=== PATIENT | female | born 1990 | race Caucasian/White ===

== ENCOUNTER 2017-12-06 18:35 | Outpatient (CLI) | payer OTHER, SELFPAY | END 2017-12-06 19:30 | disposition home or self-care (01) | LOC: M LDO 18:35 | DX: O47.03 False labor before 37 completed weeks of gestation, third trimester (principal); Z3A.36 36 weeks gestation of pregnancy | CPT/HCPCS: 59025 ==

== ENCOUNTER 2017-12-20 02:44 | Inpatient (IN) | payer OTHER ==
[2017-12-20] MEDS: LACTATED RINGER'S 1000 ML IV (03:16)
[2017-12-20 03:51] LABS: HEMATOCRIT 36.1 % (36.0-47.0); HEMOGLOBIN 12.5 g/dl (12.0-16.0); MEAN CORPUSCULAR HEMOGLOBIN 30.8 pg (27.0-33.0); MEAN CORPUSCULAR HGB CONC 34.6 g/dl (32.0-36.5); MEAN CORPUSCULAR VOLUME 88.9 fl (80.0-96.0); PLATELET COUNT, AUTOMATED 160 10^3/uL (150-450); RED BLOOD COUNT 4.06 10^6/uL (4.00-5.40); RED CELL DISTRIBUTION WIDTH 12.9 % (11.5-14.5); WHITE BLOOD COUNT 11.8 10^3/uL (4.0-10.0)
[2017-12-20] MEDS: PENICILLIN G POTASSIUM IV 5 MU in D5W MINI-BAG PLUS 100 ML IV (04:01)
[2017-12-20] MEDS: ACETAMINOPHEN TAB 650MG DOSE (2X325MG) PO (04:01)
[2017-12-20] MEDS: PENICILLIN G POTASSIUM IV 2.5 MU in APPROPRIATE DILUENT 1 EA IV ×3 (09:00→17:31)
[2017-12-20] MEDS: hydrALAZINE INJ 20 MG/ML VIAL IV (10:11)
[2017-12-20] MEDS: MAG Sulf (L&D) 4 GM/100 ML 4 GM in APPROPRIATE DILUENT 1 EA IV (11:30)
[2017-12-20] MEDS ORDERED: CALCIUM GLUCONATE 1,000 MG in D5W MINI-BAG PLUS 100 ML IV (11:30)
[2017-12-20] MEDS: MAG Sulf (OBGYN) 20GM/500ML 20,000 MG in APPROPRIATE DILUENT 1 EA IV ×3 (11:32→18:32)
[2017-12-20] MEDS: LR 1,000 ML IV ×3 (11:33→15:55)
[2017-12-20 11:40] LABS: HEMATOCRIT 36.3 % (36.0-47.0); HEMOGLOBIN 12.7 g/dl (12.0-16.0); MEAN CORPUSCULAR HEMOGLOBIN 30.2 pg (27.0-33.0); MEAN CORPUSCULAR VOLUME 86.2 fl (80.0-96.0); PLATELET COUNT, AUTOMATED 196 10^3/uL (150-450); RED BLOOD COUNT 4.21 10^6/uL (4.00-5.40); WHITE BLOOD COUNT 14.9 10^3/uL (4.0-10.0)
[2017-12-20] MEDS ORDERED: FENTANYL 2MCG/ML ROPIVACAINE 0.2% IN 0.9% NACL 200ML IVBAG As Ordered (11:46)
[2017-12-20 12:18] LABS: ALBUMIN/GLOBULIN RATIO 0.91 (1.00-1.93); ALKALINE PHOSPHATASE 75 U/L (45-117); ALT/SGPT 13 U/L (12-78); ANION GAP 11 MEQ/L (8-16); AST/SGOT 14 U/L (7-37); BILIRUBIN,TOTAL 0.3 MG/DL (0.2-1.0); BLOOD UREA NITROGEN 11 MG/DL (7-18); CALCIUM LEVEL 8.6 MG/DL (8.5-10.1); CARBON DIOXIDE LEVEL 22 MEQ/L (21-32); CHLORIDE LEVEL 105 MEQ/L (98-107); CREATININE FOR GFR 0.97 MG/DL (0.55-1.30); GLOMERULAR FILTRATION RATE > 60.0 (>60); GLUCOSE, FASTING 100 MG/DL (70-100); SODIUM LEVEL 138 MEQ/L (136-145); TOTAL PROTEIN 6.3 GM/DL (6.4-8.2)
[2017-12-20] MEDS ORDERED: ePHEDrine SULFATE 25 MG/5 ML(5MG/ML) SYRINGE IV (12:30)
[2017-12-20] MEDS ORDERED: NALOXONE INJ 0.4 MG/1 ML VIAL (J2310) IV (12:30)
[2017-12-20] MEDS ORDERED: diphenhydrAMINE INJ 50MG/ML VIAL (J1200) IV (12:30)
[2017-12-20] MEDS ORDERED: EPIDURAL COMMENT XX (12:30)
[2017-12-20] MEDS: FENTANYL/ROPIVACAINE/NACL BAG 200 ML EPIDURAL (12:30)
[2017-12-20 13:18] LABS: CREATININE,RANDOM URINE 56.3 MG/DL
[2017-12-20] MEDS: OXYTOCIN DRIP 30 UNITS in APPROPRIATE DILUENT 1 EA IV (16:10)
[2017-12-20] MEDS: ONDANSETRON 4MG/2ML VIAL (J2405) IV (16:59)
[2017-12-20] MEDS: ACETAMINOPHEN 500 MG TAB PO (17:00)
[2017-12-20 17:31] LABS: HEMATOCRIT 35.2 % (36.0-47.0); HEMOGLOBIN 12.2 g/dl (12.0-16.0); MEAN CORPUSCULAR HEMOGLOBIN 30.6 pg (27.0-33.0); MEAN CORPUSCULAR HGB CONC 34.7 g/dl (32.0-36.5); MEAN CORPUSCULAR VOLUME 88.2 fl (80.0-96.0); PLATELET COUNT, AUTOMATED 197 10^3/uL (150-450); RED BLOOD COUNT 3.99 10^6/uL (4.00-5.40); RED CELL DISTRIBUTION WIDTH 13.2 % (11.5-14.5); WHITE BLOOD COUNT 15.4 10^3/uL (4.0-10.0)
[2017-12-20 17:59] LABS: MAGNESIUM LEVEL 5.3 MG/DL (1.8-2.4)
[2017-12-20 23:44] LABS: MAGNESIUM LEVEL 7.3 MG/DL (1.8-2.4)
[2017-12-21] MEDS ORDERED: OXYTOCIN 30 UNITS IN 0.9% NaCl 500ML IV BAG (J2590) As Ordered (01:29)
[2017-12-21] MEDS ORDERED: OXYTOCIN INJ 10 UNITS/ML VIAL (J2590) As Ordered (01:39)
[2017-12-21] MEDS: miSOPROStol 200 MCG TAB (S0191) PR (01:41)
[2017-12-21] MEDS ORDERED: MOM 30ML SUSPENSION UDC PO (02:15)
[2017-12-21] MEDS ORDERED: ONDANSETRON 4MG/2ML VIAL (J2405) IV (02:15)
[2017-12-21] MEDS ORDERED: MEASLES,MUMPS,RUBELLA VACCINE INJ (MMR-II) (90707) SC (02:15)
[2017-12-21] MEDS: LR 1,000 ML IV ×2 (02:35→15:17)
[2017-12-21] MEDS ORDERED: MAGNESIUM SULFATE 4% INJ 20GM/500ML (40MG/ML) (J3475) As Ordered (05:15)
[2017-12-21] MEDS: IBUPROFEN 800 MG TAB PO ×3 (05:30→21:25)
[2017-12-21 06:38] LABS: HEMATOCRIT 28.2 % (36.0-47.0); MEAN CORPUSCULAR HGB CONC 34.8 g/dl (32.0-36.5); MEAN CORPUSCULAR VOLUME 89.2 fl (80.0-96.0); PLATELET COUNT, AUTOMATED 175 10^3/uL (150-450); RED BLOOD COUNT 3.16 10^6/uL (4.00-5.40); RED CELL DISTRIBUTION WIDTH 13.1 % (11.5-14.5); WHITE BLOOD COUNT 20.3 10^3/uL (4.0-10.0)
[2017-12-21 06:41] LABS: HEMOGLOBIN 9.8 g/dl (12.0-16.0)
[2017-12-21] MEDS: FENTANYL/ROPIVACAINE/NACL BAG 200 ML EPIDURAL (06:41)
[2017-12-21 07:21] LABS: MAGNESIUM LEVEL 7.1 MG/DL (1.8-2.4)
[2017-12-21] MEDS: DOCUSATE SODIUM 100 MG CAP PO (09:07)
[2017-12-21] MEDS: ACETAMINOPHEN TAB 650MG DOSE (2X325MG) PO (09:07)
[2017-12-21] MEDS: PRENATAL VITAMINS CHEWABLE TABLET PO (09:07)
[2017-12-21] MEDS: MAG Sulf (OBGYN) 20GM/500ML 20,000 MG in APPROPRIATE DILUENT 1 EA IV (15:17)
[2017-12-21] MEDS: LACTATED RINGER'S 1000 ML IV (16:21)
[2017-12-21] MEDS: EPIDURAL/PCA KEYS XX (16:21)
[2017-12-21] MEDS: REFRIGERATOR IV KEYS XX (16:21)
[2017-12-21] MEDS: OXYTOCIN DRIP 30 UNITS in APPROPRIATE DILUENT 1 EA IV (16:25)
[2017-12-21] MEDS: ACETAMINOPHEN 500 MG TAB PO (18:14)
[2017-12-22] MEDS: ACETAMINOPHEN 500 MG TAB PO ×2 (01:32→21:17)
[2017-12-22] MEDS: MAG Sulf (OBGYN) 20GM/500ML 20,000 MG in APPROPRIATE DILUENT 1 EA IV (03:19)
[2017-12-22] MEDS: LR 1,000 ML IV (05:59)
[2017-12-22 06:42] LABS: HEMATOCRIT 26.5 % (36.0-47.0); MEAN CORPUSCULAR HEMOGLOBIN 30.9 pg (27.0-33.0); MEAN CORPUSCULAR VOLUME 91.1 fl (80.0-96.0); PLATELET COUNT, AUTOMATED 147 10^3/uL (150-450); RED BLOOD COUNT 2.91 10^6/uL (4.00-5.40); RED CELL DISTRIBUTION WIDTH 13.6 % (11.5-14.5); WHITE BLOOD COUNT 7.7 10^3/uL (4.0-10.0)
[2017-12-22 08:08] LABS: FETAL SCREEN PROF. 1 1
[2017-12-22] MEDS: IBUPROFEN 800 MG TAB PO ×2 (08:13→18:40)
[2017-12-22] MEDS: PRENATAL VITAMINS CHEWABLE TABLET PO (08:13)
[2017-12-22] MEDS: RHOGAM 300 MCG (1500 IU) INJ (J2790) IM (08:51)
[2017-12-22] MEDS: DIBUCAINE 1% OINTMENT 30GM TOP (21:17)
[2017-12-22] MEDS: DOCUSATE SODIUM 100 MG CAP PO (21:21)
[2017-12-23] MEDS: ACETAMINOPHEN 500 MG TAB PO (05:31)
[2017-12-23] MEDS: IBUPROFEN 800 MG TAB PO (05:31)
[2017-12-23 06:50] LABS: HEMATOCRIT 25.7 % (36.0-47.0); HEMOGLOBIN 8.6 g/dl (12.0-16.0); MEAN CORPUSCULAR HEMOGLOBIN 30.6 pg (27.0-33.0); MEAN CORPUSCULAR HGB CONC 33.5 g/dl (32.0-36.5); MEAN CORPUSCULAR VOLUME 91.5 fl (80.0-96.0); PLATELET COUNT, AUTOMATED 137 10^3/uL (150-450); RED BLOOD COUNT 2.81 10^6/uL (4.00-5.40); RED CELL DISTRIBUTION WIDTH 13.2 % (11.5-14.5)
[2017-12-23] MEDS: PRENATAL VITAMINS CHEWABLE TABLET PO (10:00)
== END 2017-12-23 12:25 | disposition home or self-care (01) | DRG 774 ==
LOC: M LDO 02:44 → M LDI 03:09 → M OBS 12-21 15:59
PROC: 10E0XZZ Delivery of Products of Conception, External Approach (ICD-10-PCS; principal; 2017-12-21)
PROC: 0HQ9XZZ Repair Perineum Skin, External Approach (ICD-10-PCS; 2017-12-21)
DX: O14.13 Severe pre-eclampsia, third trimester (principal); O70.0 First degree perineal laceration during delivery; Z37.0 Single live birth; Z3A.38 38 weeks gestation of pregnancy; E66.9 Obesity, unspecified; O99.214 Obesity complicating childbirth

== ENCOUNTER → 2018-09-04 | Outpatient (CLI) | payer OTHER ==
[2018-09-04 12:06] LABS: CONTROL LINE HCG INT CTR LINE PRESENT; HCG, SERUM QUALITATIVE POSITIVE (NEGATIVE)
== END ==
LOC: M LAB 11:12
DX: Z32.00 Encounter for pregnancy test, result unknown (principal); K43.9 Ventral hernia without obstruction or gangrene
CPT/HCPCS: 84703

== ENCOUNTER 2018-12-12 10:50 | Emergency (ER) | payer OTHER ==
[~2018-12-12] VITALS: Ht 185.4 cm; Wt 131.8 kg
[~2018-12-12 10:50] MED LIST: COLA100C5 PO; IBUP-1114 PO; MAPA500T2 PO; PRENTAB9 PO
[2018-12-12 10:58] VITALS: BP 150/90
[2018-12-12] MEDS ORDERED: PRENTAB9 PO (12:24)
== END 2018-12-12 11:27 | disposition admitted as inpatient to this hospital (09) ==
LOC: M ED 10:50 → EDBD 10:50 → M ED 11:27
DX: Z04.1 Encounter for examination and observation following transport accident (principal); V43.52XA Car driver injured in collision with other type car in traffic accident, initial encounter; Y92.410 Unspecified street and highway as the place of occurrence of the external cause; O16.3 Unspecified maternal hypertension, third trimester; Z3A.34 34 weeks gestation of pregnancy

== ENCOUNTER 2018-12-12 11:35 | Outpatient (CLI) | payer OTHER ==
[~2018-12-12] VITALS: Ht 185.4 cm; Wt 133.7 kg
[2018-12-12 11:51] VITALS: BP 134/67
[2018-12-12] MEDS ORDERED: PRENTAB9 PO (12:24)
[2018-12-12] MEDS ORDERED: LACTATED RINGER'S 1000 ML IV STA (12:29)
[2018-12-12] MEDS ORDERED: LR 1,000 ML IV SCH (12:29)
[2018-12-12] MEDS ORDERED: ACETAMINOPHEN 500 MG TAB PO PRN (13:15)
[2018-12-12 13:28] LABS: HEMATOCRIT 37.3 % (36.0-47.0); HEMOGLOBIN 12.5 g/dl (12.0-15.5); MEAN CORPUSCULAR HEMOGLOBIN 29.8 pg (27.0-33.0); MEAN CORPUSCULAR HGB CONC 33.5 g/dl (32.0-36.5); PLATELET COUNT, AUTOMATED 180 10^3/uL (150-450); RED BLOOD COUNT 4.19 10^6/uL (4.00-5.40); WHITE BLOOD COUNT 10.1 10^3/uL (4.0-10.0)
[2018-12-12 13:35] VITALS: BP 148/87
[2018-12-12 13:43] LABS: INR 0.94; PROTHROMBIN TIME 12.7 SECONDS (12.1-14.4)
[2018-12-12 13:44] LABS: PARTIAL THROMBOPLASTIN TIME 24.7 SECONDS (25.4-37.6)
[2018-12-12 16:57] VITALS: BP 116/61
[2018-12-12 17:48] VITALS: BP_SYST 85
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
== END 2018-12-12 18:50 | disposition home or self-care (01) ==
LOC: M LDO 11:35
PROVIDERS: ATTEND Obstetrics & Gynecology
DX: O71.89 Other specified obstetric trauma (principal); Z3A.34 34 weeks gestation of pregnancy
CPT/HCPCS: 59025; 85027; 85384; 85460; 85610; 85730; 86850; 86870; 86900; 86901; G0378; G0463

== ENCOUNTER 2019-01-14 09:42 | Inpatient (IN) | payer OTHER ==
[~2019-01-14] VITALS: Ht 185.4 cm; Wt 139.1 kg
[2019-01-14] VITALS (12 sets, daily range): BP systolic 121–139; BP diastolic 62–77
[2019-01-14] MEDS ORDERED: LACTATED RINGER'S 1000 ML IV STA (12:41)
[2019-01-14 13:37] LABS: HEMATOCRIT 37.3 % (36.0-47.0); HEMOGLOBIN 12.7 g/dl (12.0-15.5); MEAN CORPUSCULAR HEMOGLOBIN 30.2 pg (27.0-33.0); MEAN CORPUSCULAR VOLUME 88.6 fl (80.0-96.0); PLATELET COUNT, AUTOMATED 187 10^3/uL (150-450); RED BLOOD COUNT 4.21 10^6/uL (4.00-5.40); WHITE BLOOD COUNT 8.9 10^3/uL (4.0-10.0)
[2019-01-14 13:46] LABS: ALT/SGPT 13 U/L (12-78); BILIRUBIN,TOTAL 0.2 MG/DL (0.2-1.0); CREATININE FOR GFR 0.64 MG/DL (0.55-1.30); GLOMERULAR FILTRATION RATE > 60.0 (>60); LDH LACTATE DEHYDROGENASE 162 U/L (84-246); URIC ACID 3.6 MG/DL (2.6-6.0)
[2019-01-14] MEDS ORDERED: miSOPROStol 25 MCG 1/4 TAB (S0191) PV SCH (14:15)
--- NOTE | 2019-01-14 14:33 | HPEPDOC ---
Obstetrical History & Physical General Date of Admission Jan 14, 2019 at 09:42 History of Present Illness 29 yo @ 39+0 by 27 wk US. Presented to L&D ambulatory for IOL d/t CHTN. Notes CTXs. Reports they are not painful. Denies DFM, LOF and vaginal bleeding. GBS positive. Chief Complaint: Induction of labor Information Provided By: Patient Age: 29 : 2 Term: 1 Pre-term: 0 Abortions: 0 Livin Care Care: Limited Care (Entered OB Care at 27 wks of ) Number of Visits: 5 Dating Final EDC: Jan 21, 2019 Final EDC for Daily Update: Jan 21, 2019 Final EDC by: 2nd trimester (US) ([facility]CO based on 27+2 wk US on [id number]) Antepartum Course Diagnos(e)s 1. BMI-35 2. CHTN 3. abdominal hernia 4. Late discovery of 5. RH negative 6. GBS positive Pre- weight (lbs.): 266 Admission Weight (lbs.): 303 Change in Weight (lbs.): 37 Past Medical History Past Obstetrical History : Date of Delivery: Dec 21, 2017 Gestation: 38 Type of Delivery: Spontaneous Vaginal Del. 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 BMI-35 2. CHTN 3. abdominal hernia Surgical History: [place] teeth, Other (R shouler labrum repair-2008; L&R foot cyst [id number]; L foot hammer toe repair-2014) Family History Significant Family History: No pertinent family hx Social History Marital Status: Family situation: Spouse/partner home Psychosocial History: No pertinent psych hx * Smoker: non-smoker Alcohol: Denies Drugs: denies Abuse Violence Screening Have you been hit/kicked/slapp: No Have you been sexually assault: No Imunizations Influenza Status: current ([id number]) Allergies Coded Allergies: No Known Allergies (Unverified , 12/12/18) Medications Scheduled No.137/Iron/Folic Acd ( Vitamin Tablet) 1 Tab Tab, 1 TAB PO DAILY Physical Examination Physical Examination GENERAL: A&O x 3 BREAST: . ABDOMEN: Gravid and non-tender to touch. FETUS: VTX by SVE and Reyes. HEART RATE: RRR LUNGS: CTA EXTREMITIES: +1 edema. No clonus. DTRs +2 EFW- 3800 grams Vital Signs/I&O Vital Signs Date Time Temp Pulse Resp B/P (MAP) Pulse Ox O2 Delivery O2 Flow Rate FiO2 01/14/19 13:17 80 18 122/66 (84) 01/14/19 11:12 97.1 Laboratory Data 24H LABS Laboratory Tests 2 01/14/19 10:02: Serology Scanned Report Hepatitis B Testing 01/14/19 10:51: Nucleated Red Blood Cells % (auto) 0.0, Glomerular Filtration Rate > 60.0, Creatinine 0.64, Aspartate Amino Transf (AST/SGOT) 10, Alanine Aminotransferase (ALT/SGPT) 13, Lactate Dehydrogenase 162, Total Bilirubin 0.2, Uric Acid 3.6 CBC/BMP Laboratory Tests 01/14/19 10:51 Red Blood Count 4.21, Mean Corpuscular Volume 88.6, Mean Corpuscular Hemoglobin 30.2, Mean Corpuscular Hemoglobin Concent 34.0, Red Cell Distribution Width 13.1, Aspartate Amino Transf (AST/SGOT) 10, Alanine Aminotransferase (ALT/SGPT) 13, Lactate Dehydrogenase 162, Total Bilirubin 0.2, Uric Acid 3.6 Urine Culture: Other (GBS positive) Pertinent Laboratoy Data Blood Type: A- RBC Antibody Screen: Positive HIV: Negative Hepatitis B: Negative Hepatitis C: Unknown Rapid Plasma Reagin: Nonreactive Rubella: Immune Varicella: Immune Chlamydia/Gonorrhea: Negative Group B Streptococcus: Positive Glucose Tolerance Test: 124 Anatomy Ultrasound Ultrasound Date: Oct 24, 2018 Placenta Location: Anterior Normal Anatomy: Yes Placenta Previa: No Estimated Weight (grams): 1004 Other Ultrasounds [id number] Anterior placenta, no previa, EFW-2075 grams, 71% Steroid Therapy Steroid Therapy: No Vaginal Examination Dilation: 1cm (thick) Station: -2 Cervical Consistency: Medium Cervical Position: Middle Presentation: Cephalic presentation Position: Vertex (occiput) Assessment Heart Rate (FHR): 140 Variability: Moderate Accelerations: Positive Decelerations: None Tocometer Contractions: Yes Frequency: irregular, every 3-7 min. Duration: less than 90 seconds Strength: palpated as mild, resting tone palp/soft Multi-drug resistant Organism: No history of MDRO Assessment/Plan Assessment 29 yo @ 39+0, IOL d/t CHTN. GBS positive. Plan Admit and orient. Inletter and consent. Diet: regular GB positive-tx with PCN per unit protocol Labs and IVper unit protocol. Counseled on Pitocin and IOL LR: Bolus 1000 mL, then at 125 mL/hr. Anticipate C-S as appropriate. Cook Balloon placed with 60/60 ml NS DEMETRIUS JEFFRIES CNM Jan 14, 2019 14:33
--- NOTE | 2019-01-14 18:27 | IPNPDOC ---
Text Note Date of Service The patient was seen on 01/14/19. NOTE [id number] @ 1815 29 yo @ 39+0 here for IOL d/t CHTN. S: Resting in bed in semi-fowlers, reporting some cramping/burning. Labor support person at bedside. O: VS- WNL, afebrile FHR-140, moderate variability, + accels, no decels CTX-regular, 1-5 min, lasting < 90 sec, palpated as mild, resting tone palpated as soft SVE- deferred Cook balloon remains intact A: 29 yo @ 39+0 with CAT I FHR tracing P: Continue to monitor and assess, reassess in 4-6 hours or prn, initiate pitocin IOL when cook balloon is out VS,Fishbone, I+O VS, Fishbone, I+O Laboratory Tests 01/14/19 10:51 Red Blood Count 4.21, Mean Corpuscular Volume 88.6, Mean Corpuscular Hemoglobin 30.2, Mean Corpuscular Hemoglobin Concent 34.0, Red Cell Distribution Width 13.1, Aspartate Amino Transf (AST/SGOT) 10, Alanine Aminotransferase (ALT/SGPT) 13, Lactate Dehydrogenase 162, Total Bilirubin 0.2, Uric Acid 3.6 Vital Signs Date Time Temp Pulse Resp B/P (MAP) Pulse Ox O2 Delivery O2 Flow Rate FiO2 01/14/19 17:23 78 18 136/68 (90) 01/14/19 15:22 97.9 DEMETRIUS JEFFRIES CNM Jan 14, 2019 18:27
[2019-01-14] MEDS: LR 1,000 ML IV SCH (20:59)
--- NOTE | 2019-01-14 21:50 | IPNPDOC ---
Text Note Date of Service The patient was seen on 01/14/19. NOTE [id number] @ 0 29 yo @ 39+0 here for IOL d/t CHTN. S: Resting in bed in semi-fowlers, reporting some cramping/burning. Labor support person at bedside. O: VS- WNL, afebrile FHR-140, moderate variability, + accels, no decels CTX-irregular, 1-8 min, lasting 60-120 sec, palpated as mild, resting tone palpated as soft SVE- deferred Cook balloon out @ 1945 A: 29 yo @ 39+0 with CAT I FHR tracing P: Continue to monitor and assess, initiate pitocin IOL when appropriate based on patient safety and staffing VS,Dion, I+O VS, Alyshae, I+O Laboratory Tests 01/14/19 10:51 Red Blood Count 4.21, Mean Corpuscular Volume 88.6, Mean Corpuscular Hemoglobin 30.2, Mean Corpuscular Hemoglobin Concent 34.0, Red Cell Distribution Width 13.1, Aspartate Amino Transf (AST/SGOT) 10, Alanine Aminotransferase (ALT/SGPT) 13, Lactate Dehydrogenase 162, Total Bilirubin 0.2, Uric Acid 3.6 Vital Signs Date Time Temp Pulse Resp B/P (MAP) Pulse Ox O2 Delivery O2 Flow Rate FiO2 01/14/19 18:21 97.9 78 18 132/67 (88) DEMETRIUS JEFFRIES CNM Jan 14, 2019 21:50
[2019-01-15] VITALS (75 sets, daily range): BP systolic 83–154; BP diastolic 44–104
[2019-01-15] MEDS ORDERED: OXYTOCIN DRIP 30 UNITS in APPROPRIATE DILUENT 1 EA IV SCH ×2 (02:15→23:45)
[2019-01-15] MEDS: LR 1,000 ML IV SCH ×4 (02:50→17:48)
--- NOTE | 2019-01-15 03:53 | IPNPDOC ---
Text Note Date of Service The patient was seen on 01/15/19. NOTE [id number] given to Dr. Starks @ 0430. VS,Fishbone, I+O VS, Fishbone, I+O Laboratory Tests 01/14/19 10:51 Red Blood Count 4.21, Mean Corpuscular Volume 88.6, Mean Corpuscular Hemoglobin 30.2, Mean Corpuscular Hemoglobin Concent 34.0, Red Cell Distribution Width 13.1, Aspartate Amino Transf (AST/SGOT) 10, Alanine Aminotransferase (ALT/SGPT) 13, Lactate Dehydrogenase 162, Total Bilirubin 0.2, Uric Acid 3.6 Vital Signs Date Time Temp Pulse Resp B/P (MAP) Pulse Ox O2 Delivery O2 Flow Rate FiO2 01/14/19 23:48 97.0 82 18 124/67 (86) I&O- Last 24 Hours up to 6 AM 01/15/19 06:00 Intake Total 900 ml Balance 900 ml DEMETRIUS JEFFRIES CNM Jan 15, 2019 03:53
[2019-01-15] MEDS ORDERED: PENICILLIN G POTASSIUM IV 5 MU in D5W MINI-BAG PLUS 100 ML IV STA (08:23)
--- NOTE | 2019-01-15 08:25 | IPNPDOC ---
Text Note Date of Service The patient was seen on 01/15/19. NOTE Assumed care at 0430 Pit had been on at that time for only 2 hours, not feeling anything FHT Cat 1 last few hours Pit now at 12 mu/min, just starting to feel ctx pain Cx /-3 Start GBS prophy, recheck after 2nd dose is in Sessions MD RICARDO,Dion, I+O VS, Dion I+O Laboratory Tests 01/14/19 10:51 Red Blood Count 4.21, Mean Corpuscular Volume 88.6, Mean Corpuscular Hemoglobin 30.2, Mean Corpuscular Hemoglobin Concent 34.0, Red Cell Distribution Width 13.1, Aspartate Amino Transf (AST/SGOT) 10, Alanine Aminotransferase (ALT/SGPT) 13, Lactate Dehydrogenase 162, Total Bilirubin 0.2, Uric Acid 3.6 Vital Signs Date Time Temp Pulse Resp B/P (MAP) Pulse Ox O2 Delivery O2 Flow Rate FiO2 01/15/19 06:29 70 18 127/74 (91) 01/15/19 03:59 96.6 I&O- Last 24 Hours up to 6 AM 01/15/19 06:00 Intake Total 900 ml Balance 900 ml SESSIONS,RITA Hutchins MD Jan 15, 2019 08:25
[2019-01-15] MEDS ORDERED: FENTANYL 2MCG/ML ROPIVACAINE 0.2% IN 0.9% NACL 100ML IVBAG As Ordered ONE (11:34)
[2019-01-15] MEDS ORDERED: LACTATED RINGER'S 1000 ML IV PRN (12:45)
[2019-01-15] MEDS ORDERED: REFRIGERATOR IV KEYS XX PRN (12:45)
[2019-01-15] MEDS ORDERED: diphenhydrAMINE INJ 50MG/ML VIAL (J1200) IV PRN (12:45)
[2019-01-15] MEDS ORDERED: EPIDURAL COMMENT XX SCH (12:45)
[2019-01-15] MEDS ORDERED: NALOXONE INJ 0.4 MG/1 ML VIAL (J2310) IV PRN (12:45)
[2019-01-15] MEDS ORDERED: ONDANSETRON 4MG/2ML VIAL (J2405) IV PRN (12:45)
[2019-01-15] MEDS ORDERED: EPIDURAL/PCA KEYS XX PRN (12:45)
[2019-01-15] MEDS ORDERED: FENTANYL/ROPIVACAINE/NACL BAG 100 ML EPIDURAL SCH (12:45)
[2019-01-15] MEDS: PENICILLIN G POTASSIUM IV 2.5 MU in APPROPRIATE DILUENT 1 EA IV SCH ×2 (13:01→17:25)
[2019-01-15] MEDS: ePHEDrine SULFATE 25 MG/5 ML(5MG/ML) SYRINGE IV PRN ×4 (13:25→15:53)
--- NOTE | 2019-01-15 17:40 | IPNPDOC ---
Text Note Date of Service The patient was seen on 01/15/19. NOTE 1300 RN check was 4-5/75/-2 At 1230 Got an epidural and has had mult episodes all afternoon of signif hypotension, epidural at 10. Needed 4 doses of ephedrine and 3 500 cc boluses LR to get her BP's back to WNR. Pit has been off most of the afternoon. Gabbie r, throughout never lost mod david and had accels as well, albeit with intermittent lates due to the above issues. Anesth has just come in and decreased her rate to 8. Hopefully with this lower rate will avoid any future BP issues. Restart pitocin now. Watching closely. Sessions VS,Dion, I+O VSDion I+O Vital Signs Date Time Temp Pulse Resp B/P (MAP) Pulse Ox O2 Delivery O2 Flow Rate FiO2 01/15/19 14:02 73 16 106/54 (71) 01/15/19 11:00 97.5 I&O- Last 24 Hours up to 6 AM 01/15/19 06:00 Intake Total 900 ml Balance 900 ml SESSIONS,RITA Hutchins MD Jan 15, 2019 17:40
--- NOTE | 2019-01-15 19:36 | IPNPDOC ---
Text Note Date of Service The patient was seen on 01/15/19. NOTE Pit at 6 mu/min BP's better controlled FHT Cat 1, reg ctx's Cx 6/80/-1, AROM with clr fluid Sessions VS,Dion, I+O VS, Dion I+O Vital Signs Date Time Temp Pulse Resp B/P (MAP) Pulse Ox O2 Delivery O2 Flow Rate FiO2 01/15/19 18:47 97.5 87 16 128/66 (86) I&O- Last 24 Hours up to 6 AM 01/15/19 06:00 Intake Total 900 ml Balance 900 ml SESSIONS,RITA Hutchins MD Jan 15, 2019 19:36
--- NOTE | 2019-01-15 20:44 | DNPDOC ---
[facility] Delivery Note Delivery Note DATE OF DELIVERY: [id number] PREDELIVERY DIAGNOSIS: 40 3/7 weeks' gestation and labor. POST DELIVERY DIAGNOSIS: Delivered. PROCEDURE: Spontaneous vaginal delivery SEC ACCOUNTANT: Dr. Grover ANESTHESIA: epidural ESTIMATED BLOOD LOSS: 400 mL. FINDINGS: 8 pound 9 ounce female infant, Score 9/9, nuchal cord times 1, loose DELIVERY SUMMARY: Great effort, pushed ~30 min. No delay of the vtx or the ant left shoulder. Del'd ESTEFANIA to LOT. Vigorous infant to abd. Cord C/C by FOB. Cord blood. Placenta intact. Fundus firm, pit going 999. 1st degr lac re paired with 3-0 vicryl. Small vessel with a brisk bleed stopped, watched for several minutes, no hematoma. Good cosmesis/hemostasis. Uncomplicated. Raudel GROVER,RITA Hutchins MD Jan 15, 2019 20:44
--- NOTE | 2019-01-15 21:58 | IPNPDOC ---
Text Note Date of Service The patient was seen on 01/15/19. NOTE NST Cat 1 Pit at 10 mu/min Cx 90/0/forebag ruptured, clear Doing well, recheck MN, sooner prn Sessions VS,Dion, I+O VS, Dion I+O Vital Signs Date Time Temp Pulse Resp B/P (MAP) Pulse Ox O2 Delivery O2 Flow Rate FiO2 01/15/19 18:47 97.5 87 16 128/66 (86) I&O- Last 24 Hours up to 6 AM 01/15/19 06:00 Intake Total 900 ml Balance 900 ml SESSIONS,RITA Hutchins MD Jan 15, 2019 21:58
[2019-01-15] MEDS ORDERED: DIBUCAINE 1% OINTMENT 30GM TOP PRN (23:45)
[2019-01-15] MEDS ORDERED: ACETAMINOPHEN TAB 650MG DOSE (2X325MG) PO PRN (23:45)
[2019-01-15] MEDS ORDERED: METOCLOPRAMIDE INJ 10MG/2ML VIAL (J2765) IV PRN (23:45)
[2019-01-15] MEDS ORDERED: OXYTOCIN INJ 10 UNITS/ML VIAL (J2590) IM ONE (23:45)
[2019-01-15] MEDS ORDERED: MEASLES,MUMPS,RUBELLA VACCINE INJ (MMR-II) (90707) SC SCH (23:45)
[2019-01-15] MEDS ORDERED: RHOGAM 300 MCG (1500 IU) INJ (J2790) IM SCH (23:45)
--- NOTE | 2019-01-15 23:58 | DNPDOC ---
[facility] Delivery Note Delivery Note DATE OF DELIVERY: [id number] PREDELIVERY DIAGNOSIS: 39 1/7 weeks' gestation and labor. POST DELIVERY DIAGNOSIS: Delivered. PROCEDURE: Spontaneous vaginal delivery STATISTICAL MACHINE MECHANIC: Dr. Grover ANESTHESIA: epidural ESTIMATED BLOOD LOSS: 500 mL. FINDINGS: 9 pound 2 ounce male , Score 9/9, loose nuchal cord times 1 DELIVERY SUMMARY: C/C/+2, great pusher, only a few sets of pushes needed. NAHUM to ROT. Left ant shoulder w/o delay. Obviously macrosomic to abd, vigorous. Cord C/C by sister. Cord blood. Placenta intact, fundus firm, pit at 999. A few minutes later IV site on left forearm was infiltrated and swelling, IV immed stopped and pulled. Then given 10 u IM pitocin in right thigh. Inner right upper labial lac that tracks over periurethrally all closed with 3-0 vicryl, good cosmesis/hemostasis eventually. Uncomplicated. Raudel GROVER,RITA Hutchins MD Jan 15, 2019 23:57
[2019-01-16 02:31] VITALS: BP 128/75
[2019-01-16] MEDS: IBUPROFEN 800 MG TAB PO PRN ×3 (04:40→21:17)
[2019-01-16 05:20] VITALS: BP 120/65
--- NOTE | 2019-01-16 06:50 | IPNPDOC ---
Text Note Date of Service The patient was seen on 01/16/19. NOTE PPD1 States feeling well, pain controlled with prescribed meds. Baby bonding and feeding well. No heavy VB. Lochia slowing. Ambulatory. Tolerating PO without issues. Voiding spont. No CP/LP/SOB. VSSAF NAD A&O LE no C/C/E Ut at U-1, firm a/p: Doing well. Cont routine care. D/C likely tomorrow. Sessions VSDion, I+O VSDion I+O Vital Signs Date Time Temp Pulse Resp B/P (MAP) Pulse Ox O2 Delivery O2 Flow Rate FiO2 01/16/19 05:20 97.7 76 18 120/65 (83) 01/16/19 02:31 99 I&O- Last 24 Hours up to 6 AM 01/16/19 06:00 Intake Total 6340 ml Output Total 6000 ml Balance 340 ml SESSIONS,RITA Hutchins MD Jan 16, 2019 06:50
[2019-01-16] MEDS ORDERED: ADACEL/BOOSTRIX VACCINE (DIPHTH/PERTUSS/ACELL/TETANUS)0.5ML SYR (90715) IM ONE ×2 (09:00→15:45)
[2019-01-16] MEDS: PRENATAL VITAMINS CHEWABLE TABLET PO SCH (09:08)
[2019-01-16] MEDS: DOCUSATE SODIUM 100 MG CAP PO SCH ×2 (09:08→21:17)
[2019-01-17 06:03] VITALS: BP 131/69
[2019-01-17] MEDS: PRENATAL VITAMINS CHEWABLE TABLET PO SCH (08:38)
[2019-01-17] MEDS: DOCUSATE SODIUM 100 MG CAP PO SCH (08:39)
[2019-01-17] MEDS: IBUPROFEN 800 MG TAB PO PRN (08:39)
[2019-01-17] MEDS ORDERED: ACET-907 PO (10:34)
[2019-01-17] MEDS ORDERED: ADVI100T PO (10:45)
--- NOTE | 2019-01-17 12:13 | IPNPDOC ---
Progress Note Date of Service: Jan 17, 2019 Day#: 2 Progress Note PPD 2 SUBJECT: Sydnie is a 29yo [id number] s/p uncomplicated at 39w1d after undergoing IOL for CHTN, delivering at 23:15 on 01/15 with only a kingsley-urethral laceration and repair, doing well day # 2. She has been ambulating, voiding spontaneously without issue and tolerating regular diet. Breast feeding without issue. Reports lochia is like a normal period. No f/c/n/v/CP/SOB. OBJECTIVE: VITAL SIGNS: Within normal limits, normotensive, afebrile. Alert and oriented times three. Abdomen: Fundus firm at U-2. Soft, NTTP. Extremities: no pain with palpation of calves ASSESSMENT: Sydnie is a 29yo [id number] s/p uncomplicated at 39w1d after undergoing IOL for CHTN, delivering at 23:15 on 01/15 with only a kingsley-urethral laceration and repair, doing well day # 2. Vitals within normal limits, afebrile, hemodynamically stable with no evidence of infection. PLAN: 1. Discharge to home today. 2. Tylenol and Motrin for pain. Lanolin, minipill. 3. Encourage breast feeding and ambulation. 4. Minipill for contraception for now, interested in vasectomy 5. Routine PP visit in 6 weeks in clinic. 6. Discussed return precautions at length. Dr. Esthela Rivera MD VS, I&O, 24H, Fishbone Vital Signs/I&O Vital Signs Date Time Temp Pulse Resp B/P (MAP) Pulse Ox O2 Delivery O2 Flow Rate FiO2 01/17/19 06:03 97.4 66 18 131/69 (89) 01/16/19 02:31 99 Esthela Rivera MD Jan 17, 2019 12:13
== END 2019-01-17 12:50 | disposition home or self-care (01) | DRG 807 ==
LOC: M LDI 09:42 → M OBS 01-16 02:06
PROVIDERS: ADMIT Midwife; ATTEND Midwife
PROC: 3E033VJ Introduction of Other Hormone into Peripheral Vein, Percutaneous Approach (ICD-10-PCS; 2019-01-14)
PROC: 10E0XZZ Delivery of Products of Conception, External Approach (ICD-10-PCS; principal; 2019-01-15)
PROC: 0HQ9XZZ Repair Perineum Skin, External Approach (ICD-10-PCS; 2019-01-15)
DX: O10.92 Unspecified pre-existing hypertension complicating childbirth (principal); Z37.0 Single live birth; Z3A.39 39 weeks gestation of pregnancy; O09.31 Supervision of pregnancy with insufficient antenatal care, first trimester; O99.820 Streptococcus B carrier state complicating pregnancy; O69.82X0 Labor and delivery complicated by other cord entanglement, without compression, not applicable or unspecified; O70.0 First degree perineal laceration during delivery

== ENCOUNTER 2019-06-17 10:07 | Day surgery (SDC) | payer OTHER ==
[~2019-06-17] VITALS: Ht 185.4 cm; Wt 120.2 kg
[~2019-06-17 10:07] MED LIST changes: +ACET-907 PO; +ADVI100T PO; +LIDOCAINE 1% MDV 20ML VIAL SQ PRN; +LR 1,000 ML IV ONE
[2019-06-17] MEDS ORDERED: dexameTHASONE 4 MG/ML 1ML VIAL (J1100) As Ordered ONE ×2 (10:20→10:21)
[2019-06-17] MEDS ORDERED: ONDANSETRON 4MG/2ML VIAL (J2405) As Ordered ONE (10:20)
[2019-06-17] MEDS ORDERED: PROPOFOL 200 MG/20 ML VIAL As Ordered ONE (10:20)
[2019-06-17] MEDS ORDERED: LIDOCAINE 2% INJ 100 MG/5 ML SDV (FOR ANES.) As Ordered ONE (10:20)
[2019-06-17] MEDS ORDERED: KETOROLAC 60 MG/2 ML VIAL (J1885) As Ordered ONE (10:20)
[2019-06-17] MEDS ORDERED: ROCURONIUM BROMIDE 50 MG/5 ML VIAL As Ordered ONE ×3 (10:20→14:44)
[2019-06-17] MEDS ORDERED: fentaNYL 250 MCG/5 ML INJECTION (J3010) As Ordered ONE (10:31)
[2019-06-17] MEDS ORDERED: MIDAZOLAM INJ 2 MG/2 ML VIAL (J2250) As Ordered ONE (10:32)
[2019-06-17] MEDS ORDERED: BUPIVACAINE LIPOSOME/PF 1.3% 20ML VIAL (13.3MG/ML)(EXPAREL)(C9290 PER1MG) As Ordered ONE (12:33)
[2019-06-17] MEDS ORDERED: BUPIVACAINE HCL 0.25% 10 ML VIAL As Ordered ONE (12:33)
[2019-06-17] MEDS ORDERED: DESFLURANE 240 ML INHALANT As Ordered ONE (12:38)
[2019-06-17] MEDS ORDERED: BUPIVACAINE HCL 0.25% 30 ML VIAL As Ordered ONE (12:57)
[2019-06-17] MEDS ORDERED: HYDROmorphone HCL 2 MG/ML 1ML VIAL (J1170) As Ordered ONE (13:29)
[2019-06-17] MEDS ORDERED: ACETAMINOPHEN 1000MG 100ML IV BTL (OFIRMEV) (J0131 PER 10MG) As Ordered ONE (13:40)
[2019-06-17] MEDS ORDERED: SUGAMMADEX SODIUM 500 MG/5 ML VIAL (BRIDION) As Ordered ONE (13:52)
[2019-06-17] MEDS ORDERED: LABETALOL HCL 100 MG/20 ML VIAL As Ordered ONE (13:52)
[2019-06-17] MEDS ORDERED: oxyCODONE 5MG TAB PO PRN (15:45)
[2019-06-17] MEDS ORDERED: ACETAMINOPHEN TAB 650MG DOSE (2X325MG) PO PRN (15:45)
[2019-06-17] MEDS ORDERED: MEPERIDINE INJ 25 MG/ML VIAL (J2175) IV PRN (15:45)
[2019-06-17] MEDS ORDERED: fentaNYL 100 MCG/2 ML INJECTION (J3010) IV PRN (15:45)
[2019-06-17] MEDS ORDERED: ONDANSETRON 4MG/2ML VIAL (J2405) IV PRN (15:45)
[2019-06-17] MEDS ORDERED: METOCLOPRAMIDE INJ 10MG/2ML VIAL (J2765) IV PRN (15:45)
[2019-06-17] MEDS ORDERED: LR 1,000 ML IV SCH (15:45)
[2019-06-17 17:50] VITALS: BP 122/62
[2019-06-17] MEDS ORDERED: IBUPROFEN 600 MG TAB PO PRN (23:00)
--- NOTE | 2019-06-18 09:20 | RO ---
DATE OF PROCEDURE: 06/17/2019 PREOPERATIVE DIAGNOSIS: Epigastric ventral hernia. POSTOPERATIVE DIAGNOSIS: Several epigastric ventral hernias. PROCEDURE PERFORMED: Robotic-assisted laparoscopic repair of epigastric ventral hernias with mesh. SURGEON: Dr. Jack Suarez HEATING AND VENTILATION ENGINEER: Deni, who was essential for aiding in placement of the trocars, docking of the robot, instrument changes, and insertion of other operative materials. ANESTHESIA: General. INDICATIONS FOR PROCEDURE: The patient is pleasant 29-year-old woman who was seen for a supraumbilical midline ventral hernia. She is now for repair of same as a robotic-assisted laparoscopic procedure. OPERATIVE PROCEDURE: The patient was brought to the operating room and placed on the table in a supine position. She was placed under general endotracheal anesthesia. The patient's abdomen was prepped and draped in a sterile fashion. The initial entry into the abdomen was with a Veress needle in the left midabdomen. High pressures were obtained on the first insertion of the Veress needle and this was moved to a left upper quadrant site also with high pressures returned. The needle was inserted a third time through the left mid abdominal incision and on this occasion the needle was inserted readily. The abdomen was inflated with carbon dioxide gas without difficulty. A Visiport of 8 mm for the robot was placed over the camera and advanced through the abdominal wall without difficulty. Initial examination showed a small hernia defect slightly to the right of the falciform high in the upper abdomen. She had no significant abdominal adhesions and no other hernias were identified. Two additional left-sided trocars were placed, one above and one below the initial trocar site. The robot was then brought into position and docked to the camera arm. Targeting took place and the additional ports were then docked as well. I then moved to the control console. The patient had some prominent preperitoneal fat in the upper abdomen along the midline. I incised the peritoneum on the left side of the falciform and elevated this peritoneum and fibrofatty tissue off working to the right. This included the area of her hernia where it was possible to invert the hernia sac and there was also a large amount of fatty tissue, preperitoneal fat that is, herniated through the defect. As the fascia was exposed, it was clear that the patient had one prominent defect about 2-1/2 cm in diameter, but there were several additional defects above and below this to a lesser degree. These all had an appearance as of splits in the fascia from over stretching of the midline fascia. The peritoneum was peeled away to the full extent possible. I then proceeded to close the largest defect and the next largest using a running suture of #1-0 Stratafix to approximate the fascia. I elected to place mesh. The area was measured. A 12 cm round Parietex patch was trimmed on both sides to create a 12 cm long x 7 cm wide patch. This was inserted into the abdomen and placed over the fascia. Approximately 1 cm was trimmed off one end for better fit. The mesh was then sutured in place using #2-0 Vicryl, initially with a central tacking suture, but then with a circumferential tacking of the mesh. Once the mesh was nicely applied, the peritoneum was closed with a running #2-0 V-Loc suture. The patient tolerated the procedure well. She was awakened in the operating room, extubated and moved to the recovery room in stable condition. The mesh utilized was a 12 cm round Parietex, reference code #[id number], lot #[id number].
== END 2019-06-17 17:50 | disposition home or self-care (01) ==
LOC: M SDC 10:07
PROVIDERS: ATTEND Surgery
DX: K43.9 Ventral hernia without obstruction or gangrene (principal)
CPT/HCPCS: 49652; C1781; J0131; J1100; J1170; J1885; J2250; J2405; J2765; J3010

== ENCOUNTER → 2021-10-11 | Outpatient (REF) | payer OTHER ==
[~2021-10-11] MED LIST changes: -LIDOCAINE 1% MDV 20ML VIAL SQ PRN; -LR 1,000 ML IV ONE
== END ==
LOC: M SFHCWAGY 17:15
PROVIDERS: ATTEND Nurse Practitioner Women's Health
DX: Z12.4 Encounter for screening for malignant neoplasm of cervix (principal)
CPT/HCPCS: 87624; G0123

== ENCOUNTER 2023-03-16 13:03 | Emergency (ER) | payer OTHER ==
[~2023-03-16] VITALS: Ht 185.4 cm; Wt 132.7 kg
[2023-03-16 13:03] VITALS: BP 156/87; TEMP 97.9; O2SAT 100
[2023-03-16] MEDS ORDERED: LIDOCAINE W/EPINEPHRINE 1% 20ML VIAL SC ONE (16:10)
[2023-03-16] MEDS ORDERED: NEOSPORIN OINT 0.9 GM PKT TOP ONE (16:10)
[2023-03-16] MEDS ORDERED: BOOSTRIX VACCINE (TETANUS/DIPHTH/ACEL. PERTUSSIS) 0.5ML SYR IM.IMMUN ONE (16:10)
== END 2023-03-16 16:53 | disposition home or self-care (01) ==
LOC: M ED 13:03
DX: S81.011A Laceration without foreign body, right knee, initial encounter (principal); W19.XXXA Unspecified fall, initial encounter; Y99.0 Civilian activity done for income or pay; Z23 Encounter for immunization

== ENCOUNTER → 2025-01-01 | Outpatient (REF) | LOC: M PLAIMG 08:08 | PROVIDERS: ATTEND Internal Medicine | DX: M54.2 Cervicalgia (principal) ==